=== PATIENT | male | born 1955 | race Caucasian/White ===

== ENCOUNTER 2016-04-27 10:18 | Emergency (ER) | payer MEDICARE, OTHER ==
[2016-04-27 10:42] VITALS: RESP 18
--- NOTE | 2016-04-27 11:11 | ED ---
General Adult HPI - General Chief complaint: Recheck/Abnormal Lab/Rx Stated complaint: MS symptoms Time Seen by Provider: 04/27/16 10:49 Source: patient, RN notes reviewed Mode of arrival: ambulatory Limitations: no limitations - History of Present Illness Initial comments: 60-year-old male presents emergency Department with chief complaint of medication questions. Patient states he has multiple medications in the bag and states that his primary care physician will not discuss his medications with him. Patient states is trying to find a new primary care physician though he states he has tried multiple. Patient states he has medications for MS, anxiety pain. Patient states that he just needs all his questions answered about his medications and which ones take. Patient states his blood pressure medications are he does not take and has not taken in several weeks. Patient states he has Antivert for dizziness he has Topamax or does not take that he states he does not have headaches. Patient states that she has Klonopin and which she needs to take occasionally. Usually daily. Patient also states that he has Celexa and which she states makes him feel better though his primary care physician told him not stated though he had a psychiatric Dr. Marques Dodd. Patient at this time is no physical complaints he only has medication questions - Related Data Allergies Allergy/AdvReac Type Severity Reaction Status Date / Time No Known Allergies Allergy Verified 04/27/16 10:42 Review of Systems ROS Statement: Those systems with pertinent positive or pertinent negative responses have been documented in the HPI. ROS Other: All systems not noted in ROS Statement are negative. Past Medical History Additional Past Medical History / Comment(s): chi multiple sclerosis meniners History of Any Multi-Drug Resistant Organisms: None Reported Past Surgical History: No Surgical Hx Reported Smoking Status: Never smoker Past Alcohol Use History: None Reported Past Drug Use History: Marijuana General Exam Limitations: no limitations General appearance: alert, in no apparent distress Head exam: Present: atraumatic, normocephalic, normal inspection Eye exam: Present: normal appearance, PERRL, EOMI. Absent: scleral icterus, conjunctival injection, periorbital swelling ENT exam: Present: normal exam, normal oropharynx, mucous membranes moist, TM's normal bilaterally Neck exam: Present: normal inspection. Absent: tenderness, meningismus, lymphadenopathy Respiratory exam: Present: normal lung sounds bilaterally. Absent: respiratory distress, wheezes, rales, rhonchi, stridor Cardiovascular Exam: Present: regular rate, normal rhythm, normal heart sounds. Absent: systolic murmur, diastolic murmur, rubs, gallop, clicks Course Vital Signs 04/27/16 10:38 Temperature 98.2 F Pulse Rate 81 Respiratory 18 Rate Blood Pressure 136/97 O2 Sat by Pulse 97 Oximetry Medical Decision Making - Medical Decision Making 60-year-old male present emergency from for medication questions. Patient's was brought answer. Patient will follow-up with on-call primary care physician Dr. Hall. Return parameters were discussed. Disposition Clinical Impression: Encounter for medication monitoring, Anxiety, Multiple sclerosis Disposition: HOME SELF-CARE Condition: Stable Instructions: Anxiety (ED) Additional Instructions: Please follow up with primary care physician and neurologist.Please return to the Emergency Department if symptoms worsen or any other concerns. Referrals: None,Stated [Primary Care Provider] - 1-2 days Jazmin Castanon MD [REFERRING] - 1-2 days ePdro Calixto MD [STAFF PHYSICIAN] - 1-2 days Time of Disposition: 11:11
[2016-04-27 11:22] VITALS: BP 144/88; PULSE 72; TEMP 98
== END 2016-04-27 11:22 | disposition home or self-care (01) ==
LOC: EC 10:18
DX: G35 Multiple sclerosis (principal); F41.9 Anxiety disorder, unspecified; R42 Dizziness and giddiness
CPT/HCPCS: 99283

== ENCOUNTER → 2016-12-02 | Outpatient (CLI) | payer MEDICARE, OTHER ==
[2016-12-02 07:32] LABS: Basophils # (A) 0.1 k/uL (0-0.2); Basophils % (A) 1 %; CH 30.6; CHCM 34.7; Eosinophils # (A) 0.4 k/uL (0-0.7); Eosinophils % (A) 5 %; HCT 48.2 % (39.0-53.0); HDW 2.59; HGB 15.8 gm/dL (13.0-17.5); Luc # (Auto) 0.16; Luc % (Auto) 2; Lymphocytes # (A) 1.8 k/uL (1.0-4.8); Lymphocytes % (A) 20 %; MCH 29.1 pg (25.0-35.0); MCHC 32.9 g/dL (31.0-37.0); MCV 88.6 fL (80.0-100.0); Mean Platelet Volume 7.5; Monocytes # (A) 0.5 k/uL (0-1.0); Monocytes % (A) 6 %; Neutrophils % (A) 67 %; RBC 5.44 m/uL (4.30-5.90); RDW 14.4 % (11.5-15.5); WBC (Perox) 9.22
[2016-12-02 07:42] LABS: ALT 68 U/L (21-72); AST 39 U/L (17-59); Alkaline Phosphatase 103 U/L (38-126); Anion Gap 16 mmol/L; Blood Urea Nitrogen 10 mg/dL (9-20); Calcium 9.6 mg/dL (8.4-10.2); Carbon Dioxide 22 mmol/L (22-30); Chloride 103 mmol/L (98-107); Glucose 218 mg/dL (74-99); Non-African American GFR(MDRD) >60 (>60 ml/min/1.73 sqM); Potassium 4.2 mmol/L (3.5-5.1); Sodium 141 mmol/L (137-145); Total Bilirubin 0.4 mg/dL (0.2-1.3)
--- NOTE | 2016-12-02 09:40 | MR ---
EXAMINATION TYPE: MR lspine wo con DATE OF EXAM: 12/02/2016 COMPARISON: NONE HISTORY: Cervicalgia, Lumbago TECHNIQUE: T1 and T2 axial and sagittal images of the lumbar spine are submitted. FINDINGS: There is no abnormal signal seen within the visualized spinal cord or paraspinal soft tissu es. Simple appearing left renal cyst noted. At L1-2 there is there is mild degenerative disc disease and facet arthropathy. No foraminal encroach ment. No Canal stenosis. At L2-3 there is there is mild degenerative disc disease. Right lateral disc bulging with mild right- sided foraminal encroachment no focal herniation or canal stenosis. At L3-4 there is facet arthropathy but no disc herniation or canal stenosis or foraminal encroachment . Mild left lateral disc bulging. At L4-5 there is more advanced facet arthropathy. No foraminal encroachment or canal stenosis. At L5-S1 there is degenerative disc disease with a focal central and left paracentral disc protrusion . No foraminal encroachment or canal stenosis. There may be mild mass effect upon the left nerve root . IMPRESSION: 1. Multilevel degenerative disc disease. Disc bulging at multiple levels with no canal stenosis. Mild right-sided foraminal encroachment and L2-L3. 2. More focal small central and left paracentral disc protrusion L5-S1. There may be mild mass effect on the left nerve root. Correlate for radiculopathy at this level. EXAMINATION TYPE: MR cervical spine wo con DATE OF EXAM: 12/02/2016 COMPARISON: NONE HISTORY: Cervicalgia, Lumbago TECHNIQUE: T1 sagittal and coronal, T2 sagittal, and gradient echo axial views of the cervical spine are submitted. FINDINGS: The cranial cervical junction is preserved. There is no abnormal signal seen within the sp inal cord or paraspinal soft tissues. At C2-3 there is no disc herniation or canal stenosis. Mild hypertrophic change of the facets and unc overtebral joints. Neural foramina patent. At C3-4 there is facet arthropathy and bilateral uncovertebral joint hypertrophy with mild to moderat e bilateral foraminal encroachment greater on the left. No canal stenosis or disc herniation. At C4-5 there is bilateral mild facet arthropathy. No disc herniation or canal stenosis. No foraminal encroachment. At C5-6 there is mild facet arthropathy and uncovertebral joint hypertrophy. No disc herniation or ca nal stenosis. At C6-7 there is no disc herniation or canal stenosis. No foraminal encroachment. At C7-T1 there is no disc herniation or canal stenosis. No foraminal encroachment. IMPRESSION: 1. Multilevel mild degenerative disc disease and uncovertebral joint hypertrophy with mild foraminal encroachment C3-C4. No disc herniation or canal stenosis at any levels.
[2016-12-02 11:37] LABS: Vitamin B12 580 pg/mL (239-931)
--- NOTE | 2016-12-02 15:35 | MR ---
EXAMINATION TYPE: MR brain wo/w con DATE OF EXAM: 12/02/2016 COMPARISON: Outside brain MRI September 26, 2013 HISTORY: MS progress study. Confusion and dizziness with left-sided hearing loss per patient. TECHNIQUE: Multiplanar, multisequence images of the brain and brainstem is performed without and with IV contras t, utilizing 8 mL intravenous Gadavist gadolinium contrast is administered intravenously. Demyelinat ing disease protocol with additional Sagittal Flair sequence performed. FINDINGS: T2 Lesions Present : Yes Approximate Number of Lesions: Approximately 6-10 Locations Identified : Scattered Size of Reference Lesion(s): 1. 0.5 cm x 0.5 cm x 0.4 cm on axial image 20 and sagittal image 12 left frontal coronal radiata les ion felt stable from prior. Enhancing Lesion(s) Present: No T1 Hypointense Lesion(s) Present: Yes Change from Prior: Likely stable accounting for technical differences Diffusion weighted images demonstrate no evidence of a recent infarct or other diffusion abnormality. There is no worrisome extra-axial fluid collection. There is mild ventricular and sulcal prominence consistent with mild age-related cerebral atrophy. Midline structures demonstrate normal morphology. The craniocervical junction appears within normal limits. Post contrast images demonstrate no abnormal enhancement. The dural venous sinuses appear pa tent. The visualized sinuses are clear and the globes are intact. IMPRESSION: Mild age-related atrophy and nonspecific white matter changes most likely on basis of pro duct of chronic small vessel ischemic change in patient this age. Other etiologies are not excluded. No new or enhancing lesions are clearly seen in comparing with outside MRI September 26, 2013.
== END | disposition home or self-care (01) ==
LOC: RADMRIMAIN 07:14
PROVIDERS: ATTEND Nurse Practitioner Acute Care
DX: M50.31 Other cervical disc degeneration, high cervical region (principal); M51.27 Other intervertebral disc displacement, lumbosacral region; M51.36 Other intervertebral disc degeneration, lumbar region; G31.9 Degenerative disease of nervous system, unspecified; R90.82 White matter disease, unspecified; G35 Multiple sclerosis; E55.9 Vitamin D deficiency, unspecified
CPT/HCPCS: 84439; 84481; 80053; 82607; 84443; 85025; 82306; 70553; 72141; 72148; A9581

== ENCOUNTER → 2017-05-27 | Outpatient (CLI) | payer MEDICARE ==
--- NOTE | 2017-05-27 10:05 | MR ---
EXAMINATION TYPE: MR brain wo/w con DATE OF EXAM: 05/27/2017 COMPARISON: Previous study dated 12/02/2016 HISTORY: Multiple sclerosis TECHNIQUE: Multiplanar, multisequence images of the brain and brainstem is performed without and with IV contras t, utilizing 7.5 mL intravenous Gadavist gadolinium contrast is administered intravenously. Demyelin ating disease protocol with additional Sagittal Flair sequence performed. FINDINGS: T2 Lesions Present : Yes Approximate Number of Lesions: 6 Locations Identified : Scattered Size of Reference Lesion(s): 1. 0.55 cm x 0.62 cm x 0.43 cm on axial image 21 and sagittal image 8 Enhancing Lesion(s) Present: No T1 Hypointense Lesion(s) Present: Yes Change from Prior: Stable Midline structures are unremarkable. There is a normal craniocervical junction. Echoplanar diffusion imaging is normal. There are normal vascular flow voids. The orbits are normal. There is no evidence of a CP angle mass lesion. There is no mass effect, midline shift or intracranial blood. IMPRESSION: 1. NO ACUTE INTRACRANIAL ABNORMALITY. 2. STABLE HIGH SIGNAL FLAIR LESIONS MAY BE ON THE BASIS SMALL VESSEL DISEASE. THESE WOULD ALSO BE COM PATIBLE WITH DEMYELINATING LESIONS.
== END | disposition home or self-care (01) ==
LOC: RADMRIMAIN 08:39
PROVIDERS: ATTEND Psychiatry & Neurology Neurology
DX: G35 Multiple sclerosis (principal)
CPT/HCPCS: 70553; A9581